=== PATIENT | male | born 1995 | race Caucasian/White ===

== ENCOUNTER 2022-05-27 08:08 | Emergency (ER) | payer OTHER ==
[~2022-05-27] VITALS: Ht 175.3 cm; Wt 86.2 kg
[2022-05-27 08:28] VITALS: BP_SYST 103
--- NOTE | 2022-05-27 08:30 | NUR ---
Pt presents to the ER bib self from home. C/O pain to left greater toe from trauma of Double D battery falling onto foot. Skin intact, aaox4 vs wnl. No Past medical history.
--- NOTE | 2022-05-27 08:45 | NUR ---
MD Kaye bedside MSE.
[2022-05-27] MEDS ORDERED: HYDROcodone/ACETAMIN 5-325 MG TAB (NORCO/ VICODIN) PO ONE (09:15)
[2022-05-27] MEDS ORDERED: IBUP-1969 PO (09:21)
--- NOTE | 2022-05-27 09:31 | NUR ---
Pt pain level decreased Pt states "I feel better." [place] effective. Pt states drove himself here after a long night of no sleep due to the pain and was advised to gain transportation. Pt. became agitated and will seek a 'ride home'.
--- NOTE | 2022-05-27 09:40 | NUR ---
Pt states he has made arrangements with family to transport him home. Will continue to discharge.
--- NOTE | 2022-05-27 09:46 | NUR ---
Patient given written and verbal discharge instructions and verbalizes understanding. ER MD discussed with patient the results and treatment provided. Patient in stable condition. ID arm band removed. Rx of Ibuprofen 600mg given. Patient educated on contusion care and pain management and to follow up with PMD. Opportunity for questions provided and answered. Medication side effect fact sheet provided.
[2022-05-27 09:47] VITALS: BP_SYST 103
== END 2022-05-27 09:47 | disposition home or self-care (01) ==
LOC: SED 08:08
DX: S90.112A Contusion of left great toe without damage to nail, initial encounter (principal); W20.8XXA Other cause of strike by thrown, projected or falling object, initial encounter; Y93.89 Activity, other specified; Y92.89 Other specified places as the place of occurrence of the external cause; Y99.8 Other external cause status
CPT/HCPCS: 99283